=== PATIENT | female | born 1980 | race American Indian/Alaskan Native ===

== ENCOUNTER 2019-10-02 07:14 | Emergency (ER) | payer OTHER ==
[2019-10-02 07:26] VITALS: BP 151/96
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
[2019-10-02] MEDS ORDERED: IBUPROFEN 800 MG TAB PO ONE (08:44)
[2019-10-02] MEDS ORDERED: CYCLOBENZAPRINE 10 MG TAB PO ONE (08:44)
== END 2019-10-02 09:23 | disposition home or self-care (01) ==
LOC: ED 07:14
DX: M79.18 Myalgia, other site (principal); M54.5 Low back pain; R07.89 Other chest pain
CPT/HCPCS: 71045; 99283